=== PATIENT | male | born 1995 | race Caucasian/White ===

== ENCOUNTER 2025-03-17 08:46 | Outpatient (CLI) | payer OTHER, SELFPAY | END 2025-03-17 08:47 | disposition home or self-care (01) | LOC: NFLDREF 03-21 19:01 | PROVIDERS: Visit Provider Family Medicine | DX: F41.1 Generalized anxiety disorder (principal); Z13.1 Encounter for screening for diabetes mellitus; Z13.6 Encounter for screening for cardiovascular disorders | CPT/HCPCS: 80053; 80061 ==